=== PATIENT | female | born 1945 | race Caucasian/White ===

== ENCOUNTER → 2017-05-24 | Outpatient (CLI) | payer OTHER, MEDICARE ==
[~2017-05-24] MED LIST: ACET325 PO; ALPR1; ALPR1 PO; ASPI325 PO; ASPI81CH PO; ATOR40TA PO; Bactrim Ds Tab1 EACH PO; CEPH500 PO; CHOL10002; CHOL10002 PO; DOCU100 PO; DULO30 PO; FURO40 PO; GABA100 PO; HYDACE10; HYDACE10B PO; HYDR1TAB94 PO; METO25 PO; METO50ER; METO50ER PO; NITR.6SL SL; Nitrostat0.4 MG; OMEG1CAP30; OMEGA FISH O PO; OXYC1TAB11 PO; Omeprazole20 M1 PO; PHENA200 PO; POTCHL20ER PO; PROC10 PO; PROC25S PR; Percocet 5-3251 EACH PO; SIME40L PO; SIMV40 PO; SULTRIDS PO; Sutent50 MG; Zofran8 MG PO
[2017-05-24 16:26] LABS: Source, Urine Clean Catch
[2017-05-24 17:23] LABS: Appearance, Urine Clear (Clear); Bilirubin, Urine Neg (Neg); Blood, Urine 1+ (Neg); Color, Urine Yellow (P-Yellow); Glucose Qualitative, Urine Neg (Neg); Ketones, Urine Neg (Neg); Leukocyte Esterase, Urine Neg (Neg); Nitrite, Urine Neg (Neg); Protein, Urine 1+ (Neg); Urobilinogen, Urine NORM (Normal)
[2017-05-24 17:56] LABS: Bacteria Rare /hpf; Red Blood Cells, Urine 0-2 /hpf (0-2); Squamous Epithelial Cells Rare /hpf (Few); White Blood Cells, Urine 0-2 /hpf (0-5)
== END | disposition home or self-care (01) ==
LOC: OLS 16:24
PROVIDERS: Internal Medicine Hematology & Oncology
DX: C64.1 Malignant neoplasm of right kidney, except renal pelvis (principal); C77.0 Secondary and unspecified malignant neoplasm of lymph nodes of head, face and neck; G89.3 Neoplasm related pain (acute) (chronic); N17.9 Acute kidney failure, unspecified
CPT/HCPCS: 81001

== ENCOUNTER 2017-06-22 14:34 | Day surgery (SDC) | payer OTHER, MEDICARE ==
[~2017-06-22 14:34] MED LIST changes: -METO50ER PO
[2017-11-26] MEDS ORDERED: METO50ER PO (15:25)
[2017-11-26] MEDS ORDERED: POTCHL20ER PO (16:21)
== END 2017-06-22 22:46 | disposition home or self-care (01) ==
LOC: RAD 14:34
DX: Z45.2 Encounter for adjustment and management of vascular access device (principal); N17.9 Acute kidney failure, unspecified; C77.0 Secondary and unspecified malignant neoplasm of lymph nodes of head, face and neck; C64.1 Malignant neoplasm of right kidney, except renal pelvis; G89.3 Neoplasm related pain (acute) (chronic)
CPT/HCPCS: 36598; Q9967